=== PATIENT | female | born 1960 | race Caucasian/White ===

== ENCOUNTER 2017-02-08 10:52 | Outpatient (CLI) | payer OTHER ==
--- NOTE | 2017-02-08 11:44 | DIAGNOSTIC IMAGING REPORT ---
PROCEDURE: US COMPLETE PELVIC W/TRANSVAG INDICATION: POST MENOPAUSAL BLEEDING TECHNIQUE: Transabdominal and endovaginal ingram scale and color Doppler sonographic images of the female pelvis were obtained. COMPARISON: None. FINDINGS: TRANSABDOMINAL SCANS: Vertically oriented uterus appears grossly normal. Normal adnexa without suspicious mass. The visible portion of the urinary bladder is normal. No significant free pelvic fluid. TRANSVAGINAL SCANS: The uterus is vertically oriented/retroverted in position and has a mildly heterogeneous myometrial echotexture. It measures approximately 5.3 x 4.0 x 5.0 cm. The endometrium is suboptimally defined. The endometrium is approximately 7.6 mm in thickness. The structure believed to be the right ovary measures 1.9 x 2.2 x 1.5 cm and has a normal follicular echotexture. There is normal detectable blood flow. The left ovary was not able to be identified. No suspicious adnexal masses or free pelvic fluid. IMPRESSION: 1. Vertically oriented/retroverted uterus results in suboptimal visualization of the endometrium. Nonetheless, the endometrium is slightly thickened. MRI of the pelvis or tissue acquisition is recommended for further evaluation of postmenopausal bleeding. 2. Left ovary was not identified.
== END 2017-02-08 23:00 ==
LOC: US SRH 10:52
DX: N95.0 Postmenopausal bleeding (principal); N85.4 Malposition of uterus